=== PATIENT | male | born 1990 | race Caucasian/White ===

== ENCOUNTER → 2023-05-31 14:57 | Outpatient (REF) | payer MEDICAID, SELFPAY ==
--- NOTE | ~2023-05-31 | XR_ITS ---
EXAMINATION: XR CHEST CLINICAL INFORMATION: Intermittent chest wall pain COMPARISON: None available. TECHNIQUE: 2 views of the chest were obtained. FINDINGS: No significant abnormality is noted involving the heart, lungs, mediastinum, bony thorax or soft tissues. XR/XR chest 2V IMPRESSION: Unremarkable chest examination.
[2023-05-31 13:01] LABS: MANUAL DIFF FLAG NO
[2023-05-31 13:10] LABS: Basophils Absolute Auto 0.1 X10*3/uL (0.0-0.2); Basophils Percent Auto 0.5 % (0-2); Eosinophils Absolute Auto 0.4 X10*3/uL (0.0-0.4); Hematocrit 48.1 % (42.0-52.0); Hemoglobin 14.9 g/dl (14.0-18.0); Imm Gran Abs Auto 0.04 X10*3/uL (0.00-0.03); Imm Gran Pct Auto 0.4 % (0.0-0.4); Mean Corpuscular Hemoglobin 27.2 pg (27.0-33.0); Mean Corpuscular Volume 87.9 fL (80.0-98.0); Mean Platelet Volume 9.7 fL (9.4-12.4); Monocytes Percent Auto 10.2 % (2-11); Neutrophils Absolute Auto 5.6 x10*3/uL (2.0-8.3); Neutrophils Percent Auto 54.9 % (45-73); Platelet Count 324 X10*3/uL (160-400); Red Blood Count 5.47 X10*6/uL (4.60-5.80); Red Cell Distribution Width 13.4 % (11.0-16.0); White Blood Count 10.1 X10*3/uL (4.8-10.8)
[2023-05-31 13:47] LABS: Alanine Aminotransferase 37 U/L (0-40); Albumin Level 3.9 g/dL (3.5-5.0); Alkaline Phosphatase 88 U/L (39-117); Anion Gap 12 (12-20); Aspartate Amino Transferase 36 U/L (5-37); Bilirubin Total 0.7 mg/dL (0.0-1.0); Blood Urea Nitrogen 8 mg/dL (9-16); Calcium 9.4 mg/dL (8.4-10.2); Carbon Dioxide 31 mmol/L (22-29); Chloride 102 mmol/L (96-108); Estimated Glomerular Filt Rate > 60; Glucose Random 198 mg/dL (60-115); Potassium 3.9 mmol/L (3.3-5.1); Sodium 141 mmol/L (135-145); Total Protein 8.7 g/dL (6.5-8.0)
[2023-05-31 13:52] LABS: Estimated Average Glucose 192 mg/dL; Hemoglobin A1c % 8.3 % (<6.0)
--- NOTE | 2023-05-31 15:04 | CA_ITS ---
Transthoracic Echocardiogram Patient (Last, First, Middle): Trey Presley, Gender: Male Date of : 1990 Age: 33 Procedure Date: 05/31/2023 Procedure Type: Transthoracic Echocardiogram Location: OP Height: 177.8 cm Weight: 225.89 kg BSA: 3.08 m2 Heart Rate: bpm BP: 140 / 92 mmHg Application Support Lead: Referring MD: Barak Najera MD Accounts Receivable Collector: Rakesh Gan MD Symptoms: INTERMITTENT CHEST PAIN X 1 YR R07.89 Study Quality: Technically Difficult due to morbid obesity ECG Rhythm: Sinus Conclusions: - 1. Technically difficult study due to body habitus despite use of contrast agent 2. Hyperdynamic LVEF of greater than 70% with severe LVH with grade 1 diastolic dysfunction 3. Poorly visualized cardiac valves with cardiac valvular Dopplers within normal limits 4. Mildly dilated ascending aorta at 3.9 cm 5. Normal measured RV systolic pressure Findings Procedure Information Contrast agent, definity, is being given per protocol without apparent complications. Left Ventricle The left ventricle was not well visualized. Normal left ventricular cavity size. There is severely increased left ventricular wall thickness. The left ventricular systolic function is hyperdynamic. The visually estimated ejection fraction is >70%. Spectral Doppler is indicative of an impaired relaxation filling pattern. E/E prime ratio is <8, consistent with normal filling pressures. Evidence suggests grade I (mild) diastolic dysfunction. Right Ventricle The right ventricle was not well visualized. Atria The left atrium was not well visualized. Interatrial shunt cannot be excluded. The right atrium was not well visualized. Aortic Valve The aortic valve was not well visualized. There is no aortic valve stenosis. Mitral Valve The mitral valve was not well visualized. There is no mitral valve regurgitation. Pulmonic Valve The pulmonic valve was not well visualized. Tricuspid Valve The tricuspid valve was not well visualized. There is trace tricuspid valve regurgitation. There is no evidence of pulmonary hypertension. Great Vessels The aorta was not well visualized. The pulmonary artery was not well visualized. There is mild dilatation of the ascending aorta measuring 3.90 cm. Venous The inferior vena cava is normal in size. Pericardium/Pleural The pericardium was not well visualized. Prior Study Comparison No prior study available for comparison. Measurements 2D Linear Measurements IVSd: 1.79 0.6-0.9/0.6-1.0 cm LVIDd: 3.97 3.9-5.3/4.2-5.9 cm LVIDd Index: 1.29 2.4-3.2/2.2-3.1 cm/m2 LVIDs: 2.20 2.0-3.6 cm LVPWd: 1.84 0.7-1.1 cm Ao Root: 4.00 2.1-3.5 cm LA Diam: 4.70 2.7-3.8/3.0-4.0 cm LAIDs Index: 1.53 1.5-2.3 cm/m2 LV Mass: 391.46 67-162/88-224 g LV Mass Index: 127.10 43-95/49-115 g/m2 LVOT Diam: 2.50 3.0+(-)1.3 cm Mitral Valve MV Pk E: 0.51 MV PK A: 0.69 MV Decel Time: 89.00 E/A: 0.70 E'Lateral: 2.72 E'Medial: 9.03 E/E' Med: 5.70 E/E' Lat: 18.90 PHT: 26.00 MVA PHT: 8.46 Decel [place]: 5.80 Aortic Valve AoV Pk Luis Carlos: 0.96 AoV Mn Luis Carlos: 0.68 AoV VTI: 0.19 AoV Pk Grad: 4.00 Aov Mn Grad: 2.00 CHARLES Cont.VTI: 3.19 LVOT LVOT Pk Luis Carlos: 0.59 LVOT Mn Luis Carlos: 0.44 LVOT VTI: 0.12 LVOT Pk Grad: 1.00 LVOT Mn Grad: 1.00 LVOT Diam: 2.50 LVOT Area: 4.91 Diastolic Function MV Pk E: 0.51 MV Pk A: 0.69 E/A: 0.70 E'Medial: 9.03 E/E' Med: 5.70 E' Laterial: 2.72 E/E' Lat: 18.90 Right Ventricle TAPSE (mm): 19.00 TVS' Luis Carlos: 15.00 Tricuspid Valve TR Pk Luis Carlos: 2.27 TR Pk Grad: 21.00 RA Press: 3.00 RVSP: 24.00 Great Vessels Aorta Ao Root-2D: 4.00 2.0-3.7 cm Ao Asc: 3.90 2.1-3.4 cm Pulmonary Valve PV Pk Luis Carlos: 1.14 Peak PV Grad: 5.00 Updated in Other Vendor System with Status of Final Rakesh Gan MD electronically signed on 05/31/2023 5:20:53 PM with status of Final
== END ==
LOC: HO.CARD 14:57
PROVIDERS: Visit Provider Family Medicine
DX: R07.89 Other chest pain (principal); R63.5 Abnormal weight gain
CPT/HCPCS: 36415; 71046; 80053; 83036; 85025; 93306; Q9957

== ENCOUNTER → 2023-05-31 15:04 | Outpatient (BNV) | payer MEDICAID, SELFPAY | PROVIDERS: Visit Provider Internal Medicine Cardiovascular Disease | DX: I51.7 Cardiomegaly (principal) | CPT/HCPCS: 93306 ==

== ENCOUNTER 2023-08-18 13:01 | Outpatient (REF) | payer MEDICAID, SELFPAY ==
--- NOTE | ~2023-08-18 | XR_ITS ---
STUDY: Bilateral knees INDICATION: Worsening bilateral knee pain and stiffness COMPARISON: None TECHNIQUE: 4 view right knee, 3 view left knee FINDINGS: Right knee: Mild tricompartment spurring. Mild medial knee joint narrowing. Patellar effusion. No fracture or dislocation. Left knee: Suprapatellar effusion. Mild tricompartment spurring and mild medial knee joint narrowing. No fracture or dislocation. XR/XR knee LT 2V IMPRESSION: Bilateral suprapatellar effusions and mild degenerative changes.
--- NOTE | ~2023-08-18 | XR_ITS ---
STUDY: Bilateral knees INDICATION: Worsening bilateral knee pain and stiffness COMPARISON: None TECHNIQUE: 4 view right knee, 3 view left knee FINDINGS: Right knee: Mild tricompartment spurring. Mild medial knee joint narrowing. Patellar effusion. No fracture or dislocation. Left knee: Suprapatellar effusion. Mild tricompartment spurring and mild medial knee joint narrowing. No fracture or dislocation. XR/XR knee RT 3V IMPRESSION: Bilateral suprapatellar effusions and mild degenerative changes.
== END 2023-08-18 13:02 | disposition home or self-care (01) ==
LOC: HO.HHCX 13:01
PROVIDERS: Visit Provider Nurse Practitioner Primary Care
DX: M25.561 Pain in right knee (principal); M25.562 Pain in left knee; G89.29 Other chronic pain
CPT/HCPCS: 73560; 73562

== ENCOUNTER 2023-11-10 14:00 | Outpatient (RCR) | payer MEDICAID, SELFPAY | END 2024-01-13 07:45 | disposition home or self-care (01) | LOC: HO.PT 14:00 | PROVIDERS: PCP Nurse Practitioner Primary Care; Visit Provider Nurse Practitioner Primary Care | DX: M25.561 Pain in right knee (principal); M25.562 Pain in left knee | CPT/HCPCS: 97110; 97140; 97161; 97530 ==

== ENCOUNTER 2025-03-19 14:36 | Outpatient (REF) | payer MEDICAID, SELFPAY ==
[2025-03-19 16:36] LABS: Microalbum/Creatinine Ratio Ur 17.0 ug/mg cr (<30)
[2025-03-19 17:02] LABS: Alanine Aminotransferase 45 U/L (0-40); Albumin Level 4.5 g/dL (3.5-5.0); Alkaline Phosphatase 76 U/L (39-117); Anion Gap 13 (12-20); Aspartate Amino Transferase 53 U/L (5-37); Blood Urea Nitrogen 9 mg/dL (9-16); Calcium 9.7 mg/dL (8.4-10.2); Carbon Dioxide 32 mmol/L (22-29); Chloride 101 mmol/L (96-108); Cholesterol 183 mg/dL (<200); Estimated Glomerular Filt Rate > 60; HDL Cholesterol 29 mg/dL (>40); Potassium 3.7 mmol/L (3.3-5.1); Sodium 142 mmol/L (135-145); Total Protein 9.3 g/dL (6.5-8.0); Triglycerides 138 mg/dL (<150)
--- OUTSIDE RECORDS SUMMARY | 2025-03-19 19:05 | XMS_ITS | Encounter Summary ---
Author Organization [employer] Address [address] [place] [address] Care Team Providers Care Service Attendant Cafeteria Name Role Phone Barby Hollis Primary Care Provider [phone] Reason for Visit * Reason Comments Med Refill Encounter Details Date Type Department Care Team (Late st Contact Info) Description 01/09/2024 Refill [facility] [address] [place] [address] Barby Hollis ANP [address] [place] [address] New onset type 2 diabetes mellitus (CMS/HCC) Social History Tobacco Use Types Packs/Day Years Used Date Smoking Tobacco: Never Passive Smoke Exposure: Never Smokeless Tobacco: Never Depression Answer Date Recorded Patient Health Questionnaire-9 Score 9 11/08/2023 Patient Health Questionnaire-9 Score 9 11/08/2023 Last PHQ-9: Questionnaire Data Not on file 0 11/08/2023 Housing Stability Answer Date Recorded What is your housing situation today? I have nila lowe 07/27/[address] you li ve. Do you have problems with any of the following? None of the above 07/27/2023 Food Insecurity Answer Date Recorded Within the past 12 months, y ou worried that your food would run out before you got money to buy more: Never True 07/27/2023 Within the past 12 months,th e food you bought just didn't last and you didn't have enough money to get more: Never True 10/2023 Transportation Answer Date Recorded In the past 12 months, has l ack of transportation kept you from medical appts, meetings, work or from getting things needed for daily living? No 07/27/2023 Utilities Answer Date Recorded In the past 12 months, has t he electric, gas, oil or water company threatened to shut off services in your home? No 07/27/2023 Depression Answer Date Recorded Patient Health Questionnaire-2 Score 2 11/08/2023 Sex and Gender Information Value Date Recorded Sex Assigned at Male 05/10/2023 1:09 PM EST Legal Sex Male 1:09 PM EDT Gender Identity Male 05/10/2023 1:09 PM EST Sexual Orientation Straight 05/10/2023 1: 09 PM EST documented as of this encounter Plan of Treatment Upcoming Encounters Date Type Department Care Team (Late st Contact Info) Description 03/28/2025 2:00 PM EST Office Visit [facility] [address] [place] [phone] Barby Hollis ANP [address] [place] [phone] documented as of this encounter Visit Diagnoses Diagnosis New onset type 2 diabetes mellitus (HCC) documented in this encounter Additional Health Concerns Assessment Noted Time PHQ-9 Depression Total Score: 9 11/08/19 24 4:03 PM EDT documented as of this encounter Care Teams Service Attendant Cafeteria Relationship Specialty Start Date End Date Barby Hollis ANP [address] [place] [address] PCP - General Family Medicine 08/08/23 documented as of this encounter
--- OUTSIDE RECORDS SUMMARY | 2025-03-19 19:05 | XMS_ITS | Clinical Summary ---
Author Organization [employer] Address [address] [place] [address] Care Team Providers Care Mental Health Coordinator Name Role Phone Barby Hollis Primary Care Provider [phone] Allergies No known active allergies Medications * This document contains information received from the source organization and may not represent a complete record from that organization. Alcohol Swabs (Alcohol Pads) 70 % padsIndications: New onset type 2 diabetes mellitus (HCC) Use as directed on skin 100 each 06/04/19 Active Blood Glucose Monitoring Suppl (FreeStyle [place] Lite) w/Device kitIndications:N ew onset type 2 diabetes mellitus (HCC) Use to test blood sugar bid dx dm 1 kit 06/04/19 Active FreeStyle lancetsIndicatio ns:New onset type 2 diabetes mellitus (HCC) 1 each by Other route 2 times daily. Use bid, dx type 2 diabetes 60 each 06/04/19 Active glucose blood (FREESTYLE LITE) test stripIndications :New onset type 2 diabetes mellitus (HCC) Use bid. Dx diabetes 60 each 06/04/19 24 Active Blood Pressure kitIndications:E levated blood pressure reading without diagnosis of hypertension 1 kit in the morning. 1 kit 08/05/19 24 Active Diclofenac Sodium (Voltaren) 1 % gelIndications:C hronic pain of both knees Apply 2g up to 4x/d to affected joint(s) for pain/swelling 100 g 2 08/05/19 24 Active Dulaglutide 3 MG/0.5ML solution auto-injectorInd ications:Hyperte nsion associated with diabetes (HCC) Inject 3 mg under the skin 1 (one) time per week. 2 mL 2 01/25/20 25 Active hydroCHLOROthiaz roseann 12.5 MG tabletIndication s:Hypertension associated with diabetes (HCC) Take 1 tablet (12.5 mg) by mouth Once per day. 90 tablet 1 01/25/20 25 026 Active albuterol 108 (90 Base) MCG/ACT inhalerIndicatio ns:Mild intermittent asthma without complication Inhale 2 puffs every 6 (six) hours if needed for shortness of breath. 18 g 1 01/25/20 25 026 Active metFORMIN XR (Glucophage-XR) 500 MG 24 hr tabletIndication s:New onset type 2 diabetes mellitus (HCC) 2 tablets once daily after meal in evening 180 tablet 1 02/01/20 25 Active losartan (Cozaar) 100 MG tabletIndication s:Essential hypertension,Hyp ertension associated with diabetes (HCC) TAKE 1 TABLET BY MOUTH EVERY DAY 90 tablet 1 02/29/20 25 Active dextran 70-hypromellose (artificial tears) 0.1-0.3 % ophthalmic solutionIndicati ons:Dry eyes, bilateral Administer 1 drop into both eyes if needed in the morning, at noon, and at bedtime for dry eyes. 15 mL 3 02/29/20 24 025 losartan (Cozaar) 100 MG tabletIndication s:Essential hypertension,Hyp ertension associated with diabetes (HCC) TAKE 1 TABLET BY MOUTH EVERY DAY 90 tablet 11/30/19 25 025 Discontinued Active Problems Problem Noted Date Diagnosed Date Essential hypertension 08/23/2023 Overview (11/08/2023): increase losartan to 50mg daily, RN visit 7-10d. If above goal (<130/80) regularly, recommend max losartan at 100mg daily and RTC for RN visit again 7-10d later, at which point will consider chlorthalidone 25mg vs amlodipine 2.5-5mg if BP remains above goal. Continue to encourage low salt diet, regular exercise, home BP monitoring, compliance with medications. Call clinic if BP is frequently >150/90 Go to ED/call 911 if > 170/100 and having sx such as [place], visual changes, chest pain, SOB Hypertension associated with diabetes 08/23/2023 New onset type 2 diabetes mellitus 06/04/2023 Encounters Date Type Department Care Team Description 03/04/2025 2:30 PM EDT Office Visit [facility] [address] [place] [address] Francisco Suly, OD Type 2 diabetes mellitus without ophthalmic manifestations (HCC) (Primary Dx); Myopia of both eyes with astigmatism 03/04/2025 Travel 02/28/2025 Refill [facility] [address] [place] [address] Amarilis Smith MD Essential hypertension; Hypertension associated with diabetes (HCC) 01/31/2025 Refill [facility] [address] [place] [address] Barby Hollis ANP New onset type 2 diabetes mellitus (CMS/HCC) 01/24/2025 11:15 AM EDT Office Visit [facility] [address] [place] [address] Barby Hollis ANP Mild intermittent asthma without complication (Primary Dx); Type 2 diabetes mellitus with hyperglycemia, without long-term current use of insulin (CMS/HCC); Hypertension associated with diabetes (CMS/HCC) 01/24/2025 Travel 01/22/2025 Refill [facility] [address] [place] [address] Barby Hollis ANP Hypertension associated with diabetes (CMS/HCC) 12/28/2024 2:15 PM EDT Office Visit [facility] [address] [place] [address] Barby Hollis ANP Hypertension associated with diabetes (CMS/HCC) (Primary Dx); Left wrist tendonitis 12/28/2024 Travel 12/27/2024 Telephone [facility] [address] [place] [address] Barby Hollis ANP chart prep from Last 3 Months Immunizations Immunization Administration Dates Next Due DTP 01/26/1991, 0,1989,1988 Hib (PRP-T) 01/15/1991 MMR 01/15/1991 OPV, Trivalent 01/26/1991,1989,1989 Pneumococcal Conjugate PCV 20 08/23/2023, 024(Deferred: Other) TD (adult), 2 Lf tetanus tox oid, preservative free, adsorbed 08/23/2023,08/05/2023(Deferred: Other) Tdap 12/28/2024 Family History Medical History Relation Name Comments Diabetes Mother Diabetic retino pthy impacting vision Relation Name Status Comments Mother Social History Tobacco Use Types Packs/Day Years Used Date Smoking Tobacco: Never Passive Smoke Exposure: Never Smokeless Tobacco: Never Tobacco Cessation:Counseling Given: Not Answered Depression Answer Date Recorded Patient Health Questionnaire-9 Score 0 12/28/2024 Patient Health Questionnaire-9 Score 0 12/28/2024 Last PHQ-9: Questionnaire Data Not on file 0 12/28/2024 Housing Stability Answer Date Recorded What is your housing situation today? I have nialdiana lowe 12/28/[address] you li ve. Do you have problems with any of the following? None of the above 12/28/2024 Food Insecurity Answer Date Recorded Within the past 12 months, y ou worried that your food would run out before you got money to buy more: Never True 12/28/2024 Within the past 12 months,th e food you bought just didn't last and you didn't have enough money to get more: Never True 12/2024 Transportation Answer Date Recorded In the past 12 months, has l ack of transportation kept you from medical appts, meetings, work or from getting things needed for daily living? No 12/28/2024 Utilities Answer Date Recorded In the past 12 months, has t he electric, gas, oil or water company threatened to shut off services in your home? No 12/28/2024 Depression Answer Date Recorded Patient Health Questionnaire-2 Score 0 12/28/2024 Internet Access Answer Date Recorded Internet Access Q1 Yes 12/28/2024 Internet Access Q2 Not on file 12/28/2024 Sex and Gender Information Value Date Recorded Sex Assigned at Male 05/10/2023 1:09 PM EST Legal Sex Male 1:09 PM EDT Gender Identity Male 05/10/2023 1:09 PM EST Sexual Orientation Straight 05/10/2023 1: 09 PM EST Last Filed Vital Signs Vital Sign Reading Time Taken Comments Blood Pressure 140/100 01/24/2025 12:11 PM EDT Pulse 95 01/24/2025 11:45 AM EDT Temperature 36.6 C (97.8 F) 01/24/2025 11:45 AM EDT Respiratory Rate 24 01/24/2025 11:45 AM EDT Oxygen Saturation 96% 01/24/2025 11:45 AM EDT Inhaled Oxygen Concentration - - Weight 215 kg (473 lb 12.8 oz) 01/24/2025 11:45 AM EDT Height 177.8 cm (5' 10 ) 01/24/2025 11:45 AM EDT Body Mass Index 67.98 01/24/2025 11:45 AM EDT Plan of Treatment Upcoming Encounters Date Type Department Care Team (Late st Contact Info) Description 03/28/2025 2:00 PM EST Office Visit [facility] [address] [place] [address] Barby Hollis ANP [address] [place], [place] [phone] Health Maintenance Due Date Last Done Comments HIV Screening 1989 Lipid Panel 1989 03/19/2025 IPV Vaccines (4 of 4 - 4-dose series) 1993 01/26/1991, 1989, 1989 Diabetes: Foot Exam 1999 Family Planning (PISQ) 2004 HPV Vaccines (1 - Male 3-dose series) 2004 Hepatitis C Screening 2007 Diabetes: Urine Protein Screening 2008 03/19/2025 Hepatitis B Vaccines (1 of 3 - 19+ 3-dose series) 2008 COVID-19 Vaccine (3 - season) 2025 01/28/2021, 01/03/2021 Influenza Vaccine (#1) 2025 Diabetes: Hemoglobin A1C 06/30/2025 025, 11/08/2023, 08/31/2023, Additional history exists Alcohol/Substance Use Screening 12/28/2025 12/28/2024 Depression Screening 12/28/2025 12/28/2024, 12/29/19 25 Disability Screening 12/28/2025 12/28/2024 SDOH Screening 12/28/2025 12/28/2024 Eye Exam 03/04/2026 03/04/2025, 02/20, 03/04/2025, Additional history exists Tobacco Screening 03/04/2026 03/04/2025 DTaP/Tdap/Td Vaccines (6 - Td or Tdap) 12/28/2034 12/28/2024, 08/23/2023, 01/26/1991, Additional history exists Zoster Vaccines (1 of 2) 2039 RSV Patients and Patients Aged 60 years or older (1 - 1-dose 75+ series) 2064 HIB Vaccines Completed 01/15/1991 Pneumococcal Vaccine: Pediatrics (0 to 5 Years) and At-Risk Patients (6 to 49) Years Completed 08/23/2023 Hepatitis A Vaccines Aged Out No long er eligible based on patient's age to complete this topic Meningococcal B Vaccine Aged Out No l onger eligible based on patient's age to complete this topic Meningococcal Vaccine Aged Out No sara danielle eligible based on patient's age to complete this topic RSV under 20 months Aged Out No longe r eligible based on patient's age to complete this topic Rotavirus Vaccines Aged Out No longer eligible based on patient's age to complete this topic Procedures Procedure Name Priority Date/Time Associated Diagnosis Comments ALBUMIN, RANDOM URINE W/CREATININE Routine 03/19/2025 2:43 PM EDT Hypertension associated with diabetes (HCC) COMPREHENSIVE METABOLIC PANEL Routine 03/19/2025 2:43 PM EDT Hypertension associated with diabetes (HCC) LIPID PANEL, STANDARD Routine 03/19/2025 2:43 PM EDT Hypertension associated with diabetes (HCC) POCT GLUCOSE Routine 01/24/2025 11:47 AM EDT Type 2 diabetes mellitus with hyperglycemia, without long-term current use of insulin (CMS/HCC) POCT GLYCATED HEMOGLOBIN, TOTAL Routine 12/28/2024 2:40 PM EDT Hypertension associated with diabetes (CMS/HCC) POCT GLUCOSE Routine 12/28/2024 2:37 PM EDT Hypertension associated with diabetes (CMS/HCC) from Last 3 Months Results * Albumin, Random Urine W/Creatinine (03/19/2025 2:43 PM EDT) Creatinine, Urine 345.28 mg/dL [facility] Microalbumin Urine 59.0 mg/L [facility] Microalbum Creatinine Ratio Ur 17.0 <30 ug/mg cr [facility] Comment:Albumin/Creatinine R atio Reference Ranges: Normal: < 30 ug/mg creatinine Microalbuminuria: 30 - 300 ug/mg creatinineClinical Albuminuria: > 300 ug/mg creatinine Urine (Urine, Random) 03/19/2025 2:43 PM EDT 03/19/2025 4:02 PM EDT Barby Hollis [facility] URINE ORDERABLES Final Resul t [facility] [address] [place] [phone] * (ABNORMAL) Lipid Panel, Standard (03/19/2025 2:43 PM EDT) Triglycerides 138 <150 mg/dL [facility] Comment:Desirable Triglyceri de: less than 150 mg/dLBorderline High Triglyceride 150-199 mg/dLHigh Triglyceride: 200-499 mg/dLVery High Triglyceride: greater than or equal to 5OO mg/dL Cholesterol 183 <200 mg/dL [facility] Comment:Desirable Cholestero l: less than 200 mg/dLBorderline High Cholesterol: 200-239 mg/dLHigh Cholesterol: greater than 239 mg/dL LDL Cholesterol Calculated 127(H) <100 mg/dL [facility] Comment:Desirable LDL: less than 100 mg/dLNear Optimal/Above Optimal LDL: 110- 129 mg/dLBorderline High LDL: 130-159 mg/dLHigh LDL: 160-189 mg/dLVery High LDL: greater than or equal to 190 mg/dL HDL Cholesterol 29(L) >40 mg/dL [facility] Comment:Desirable HDL: great er than 40 mg/dL Note: This HDL assay may give artificially low results in patients with liver disease. Blood Venous blood specimen / Unknown 03/19/2025 2:43 PM EDT 03/19/2025 4:28 PM EDT [facility] Hollis [facility] BLOOD ORDERABLES Final Resul t [facility] [address] [place] [address] [phone] * (ABNORMAL) Comprehensive Metabolic Panel (03/19/2025 2:43 PM EDT) Sodium 142 135 - 145 mmol/L [facility] Potassium 3.7 3.3 - 5.1 mmol/L [facility] Chloride 101 96 - 108 mmol/L [facility] Carbon Dioxide 32(H) 22 - 29 mmol/L [facility] Anion Gap 13 12 - 20 [facility] Urea Nitrogen (BUN) 9 9 - 16 mg/dL [facility] Creatinine, Serum 1.06 0.5 - 1.4 mg/dL [facility] Estimated Glomerular Filt Rate >60 [facility] Comment:Chronic Kidney Disea se: Estimated GFR < 60 mL/min/[id number] Kidney Disease: Estimated GFR < 15 mL/min/1.73m2 Glucose 109 60 - 115 mg/dL [facility] Calcium 9.7 8.4 - 10.2 mg/dL [facility] Bilirubin, Total 0.9 0.0 - 1.0 mg/dL [facility] Aspartate Amino Transferase 53(H) 5 - 37 U/L [facility] Alanine Aminotransferase 45(H) 0 - 40 U/L [facility] Total Protein 9.3(H) 6.5 - 8.0 g/dL [facility] Albumin Level 4.5 3.5 - 5.0 g/dL [facility] Alkaline Phosphatase 76 39 - 117 U/L [facility] Blood Venous blood specimen / Unknown 03/19/2025 2:43 PM EDT 03/19/2025 4:28 PM EDT Barby Hollis ANP LAB BLOOD ORDERABLES Final Resul t [facility] [address] [place] [address] [phone] * POCT Glucose (01/24/2025 11:47 AM EDT) Only the most recent of2 resultswithin the time period is included. Glucose Blood, POC 110 60 - 200 mg/dL [employer] Lot # [id number] Lot# Expiration Date 72 Blood Capillary blood specimen / Unknown 01/24/2025 11:47 AM EDT Barby Hollis ANP POINT OF CARE TEST ENTER/EDIT OR DERABLES Final Result * (ABNORMAL) POCT HGB A1C (12/28/2024 2:40 PM EDT) Hemoglobin A1C 6.9(A) 4.0 - 5.7 % QC Media Lot # [id number] Lot# Expiration Date , Blood 12/28/2024 2:40 PM EDT Barby oHllis ANP POINT OF CARE TEST ENTER/EDIT OR DERABLES Final Result from Last 3 Months Insurance [facility] Care Teams Mental Health Coordinator Relationship Specialty Start Date End Date Barby Hollis ANP [address] [place], [place] [phone] PCP - General Family Medicine 08/08/23
--- OUTSIDE RECORDS SUMMARY | 2025-03-19 19:05 | XMS_ITS | Encounter Summary ---
Author Organization [employer] Address [address] [place] [address] Care Team Providers Care Shutdown Coordinator Name Role Phone Barby Hollis Primary Care Provider Reason for Visit * Reason Comments Med Change Request Encounter Details Date Type Department Care Team (Late st Contact Info) Description 07/06/2023 Refill [facility] [address] [place] [phone] Barby Hollis ANP [address] [place] [address] New onset type 2 diabetes mellitus (CMS/HCC) Social History Tobacco Use Types Packs/Day Years Used Date Smoking Tobacco: Never Passive Smoke Exposure: Never Smokeless Tobacco: Never Sex and Gender Information Value Date Recorded Sex Assigned at Male 05/10/2023 1:09 PM EST Legal Sex Male 1:09 PM EDT Gender Identity Male 05/10/2023 1:09 PM EST Sexual Orientation Straight 05/10/2023 1: 09 PM EST documented as of this encounter Plan of Treatment Upcoming Encounters Date Type Department Care Team (Late st Contact Info) Description 03/28/2025 2:00 PM EST Office Visit [facility] [address] [place] [phone] Barby Hollis ANP [address] [place], [place] [phone] documented as of this encounter Visit Diagnoses Diagnosis New onset type 2 diabetes mellitus (HCC) documented in this encounter Care Teams Shutdown Coordinator Relationship Specialty Start Date End Date Barby Hollis ANP [address] [place] [address] PCP - General Family Medicine 08/08/23 documented as of this encounter
--- OUTSIDE RECORDS SUMMARY | 2025-03-19 19:05 | XMS_ITS | Encounter Summary ---
Author Organization [employer] Address [address] [place] [address] Care Team Providers Care Utility Tender Carding Name Role Phone Barby Hollis Primary Care Provider [phone] Reason for Visit * Reason Comments Med Refill Encounter Details Date Type Department Care Team ([facility] st Contact Info) Description 03/06/2024 Refill [facility] [address] [place] [address] Barby Hollis ANP [address] [place] [address] Essential hypertension; Hypertension associated with diabetes (CMS/HCC) ([facility]/HCC) Social History Tobacco Use Types Packs/Day Years [...] Description 03/28/2025 2:00 PM EST Office Visit [facility] [address] [place] [phone] Barby Hollis ANP [address] [place] [phone] documented as of this encounter Visit Diagnoses Diagnosis Essential hypertension Unspecified essential hypertension Hypertension associated with diabetes (HCC) Unspecified essential hypertension documented in this encounter Additional Health Concerns Assessment Noted Time PHQ-9 Depression Total Score: 9 11/08/19 24 4:03 PM EDT documented as of this encounter Care Teams Utility Tender Carding Relationship Specialty Start Date End Date Barby Hollis ANP [address] [place] [phone] PCP - General Family Medicine 08/08/23 documented as of this encounter
== END 2025-03-19 14:37 | disposition home or self-care (01) ==
LOC: HO.HHCL 14:36
PROVIDERS: PCP Nurse Practitioner Primary Care; Visit Provider Nurse Practitioner Primary Care
DX: E11.59 Type 2 diabetes mellitus with other circulatory complications (principal); I15.2 Hypertension secondary to endocrine disorders
CPT/HCPCS: 36415; 80053; 80061; 82043; 82570